=== PATIENT | male | born 1990 | race American Indian/Alaskan Native ===

== ENCOUNTER 2018-07-21 15:20 | Emergency (ER) | payer BC ==
--- NOTE | 2018-07-21 15:27 | Emergency Department Report ---
Blank Doc - Documentation Documentation: C/O blood in urine and not able to urinate that started today. Pelvic pressure. Pain /. Dribbling. This initial assessment diagnostic orders/clinical plan/treatment (s) is/Are subject change based on patient's health status, clinical progression and re- assessment by fellow clinical providers in the ED. Further treatment and work-up at subsequent clinical providers discretion. Patient/guardians urged not to elope from their condition may be serious if not clinically assessed and managed. Initial order include:
[2018-07-21] MEDS ORDERED: MORPHINE IV ONE (16:32)
[2018-07-21] MEDS ORDERED: TORADOL IV ONE (16:32)
--- NOTE | 2018-07-21 16:38 | Emergency Department Report ---
<VIOLETTE RM - Last Filed: 07/21/18 17:04> ED Male HPI - General Chief complaint: Urogenital-Male Stated complaint: BLOOD IN URINE Time Seen by Provider: 07/21/18 16:23 Source: patient Mode of arrival: Ambulatory Limitations: No Limitations - History of Present Illness Initial comments: Patient is a 27-year-old male who is presenting with urinary retention since last night. Patient says yesterday his urine was clear but today he is only able to get small amounts of clots of blood out from the meatus of the pen is. Patient states he has some suprapubic pain that is progressively worsening and is currently 8 out of 10 in severity. Patient states he is straining to use the bathroom and feels sensation needs to probably small clots of blood will come out. Patient denies current nausea vomiting diarrhea fevers or chills. Patient has mild nausea yesterday. Patient denies any flank pain this time. H and is stated to the nurse that he's had some urinary frequency and discomfort with urination for several weeks but had no guerita blood in the urine. - Related Data Previous Rx's Medication Instructions Recorded Last Taken Type Cyclobenzaprine HCl [Flexeril 5 MG 5 mg PO TID #30 tab 12/30/14 Unknown Rx TAB] Ibuprofen [Motrin 800 MG tab] 800 mg PO Q8HR #30 tablet 12/30/14 Unknown Rx traMADol [Ultram 50 MG tab] 50 mg PO Q6HR PRN #20 tablet 12/30/14 Unknown Rx Ciprofloxacin HCl [Cipro] 500 mg PO BID #14 tablet 07/21/18 Unknown Rx Allergies Allergy/AdvReac Type Severity Reaction Status Date / Time No Known Allergies Allergy Verified 07/21/18 15:24 ED Review of Systems Comment: All other systems reviewed and negative ED Past Medical Hx - Past Medical History Previous Medical History?: No - Surgical History Past Surgical History?: No - Social History Smoking Status: Current Every Day Smoker Substance Use Type: Alcohol - Medications Home Medications: Home Medications Medication Instructions Recorded Confirmed Last Taken Type Cyclobenzaprine HCl [Flexeril 5 MG 5 mg PO TID #30 tab 12/30/14 Unknown Rx TAB] Ibuprofen [Motrin 800 MG tab] 800 mg PO Q8HR #30 tablet 12/30/14 Unknown Rx traMADol [Ultram 50 MG tab] 50 mg PO Q6HR PRN #20 tablet 12/30/14 Unknown Rx Ciprofloxacin HCl [Cipro] 500 mg PO BID #14 tablet 07/21/18 Unknown Rx ED Physical Exam - General Limitations: No Limitations General appearance: alert, in no apparent distress - Head Head exam: Present: atraumatic, normocephalic - Eye Eye exam: Present: normal appearance - ENT ENT exam: Present: mucous membranes moist - Neck Neck exam: Present: normal inspection - Respiratory Respiratory exam: Present: normal lung sounds bilaterally. Absent: respiratory distress, wheezes, rales, rhonchi - Cardiovascular Cardiovascular Exam: Present: regular rate, normal rhythm. Absent: systolic murmur, diastolic murmur, rubs, gallop - GI/Abdominal GI/Abdominal exam: Present: soft, tenderness (suprapubic. There is also firmness in this area.), normal bowel sounds. Absent: distended, guarding, rebo und - Rectal Rectal exam: Present: deferred - Extremities Exam Extremities exam: Present: normal inspection - Back Exam Back exam: Present: normal inspection - Neurological Exam Neurological exam: Present: alert, oriented X3 - Psychiatric Psychiatric exam: Present: normal affect, normal mood - Skin Skin exam: Present: warm, dry, intact, normal color. Absent: rash ED Course - Reevaluation(s) Reevaluation #1: 07/21/18 16:38 Patient was able to express a small amount of urine. This was completely bloody and had several small clots. Reevaluation #2: 07/21/18 17:04 Kaplan was placed by nursing staff. Possibly 500 mL of guerita blood was immediately drained. Patient's bladder will be irrigated and the patient be reassessed. ED Disposition Clinical Impression: Hematuria Disposition: DC-01 TO HOME OR SELFCARE Condition: Stable Instructions: Acute Hematuria (ED) Prescriptions: Ciprofloxacin HCl [Cipro] 500 mg PO BID #14 tablet Referrals: MERCY CHARLES MD [Staff Physician] - 24 Hours (please be sure to follow up with Urology tomorrow!) <YARELIS KAM - Last Filed: 07/22/18 00:01> ED Review of Systems ROS: Stated complaint: BLOOD IN URINE Other details as noted in HPI ED Course Vital Signs 07/21/18 07/21/18 07/21/18 15:25 17:23 19:47 Temperature 98.5 F 98.5 F Pulse Rate 95 H 94 H Respiratory 18 16 16 Rate Blood Pressure 136/82 Blood Pressure 120/83 [Left] O2 Sat by Pulse 98 98 Oximetry 07/21/18 23:48 Temperature 98.5 F Pulse Rate 77 Respiratory 16 Rate Blood Pressure Blood Pressure 123/74 [Left] O2 Sat by Pulse 99 Oximetry ED Medical Decision Making - Lab Data Result diagrams: 07/21/18 16:37 07/21/18 16:37 - Medical Decision Making A 27-year-old male presents with guerita spontaneous hematuria. His ultrasound did show possible hydrocele but CT scan did not confirm any in the kidney stones or evidence of any [place]. Unsure of the stone had passed. A Kaplan catheter was placed due to the hematuria and what appeared to be urinary retention and. We attempted to irrigate the bladder. However, the the the drainage remained bloody. Case was discussed with urology home. Advised to follow-up with them in the morning. Laboratory data was relatively benign. Pain was is controlled and the discussed the findings and follow-up with the patient and family in detail. Critical care attestation.: If time is entered above; I have spent that time in minutes in the direct care of this critically ill patient, excluding procedure time. ED Disposition Is pt being admited?: No Does the pt Need Aspirin: No
[2018-07-21 17:07] LABS: BUN/Creatinine Ratio 10; Blood Urea Nitrogen 8 mg/dL (9-20); Calcium 9.9 mg/dL (8.4-10.2); Hemolysis Index 5
[2018-07-21 17:14] LABS: Basophils % (Auto) 0.4 % (0.0-1.8); Eosinophils % (Auto) 0.3 % (0.0-4.3); Hematocrit 41.9 % (35.5-45.6); Hemoglobin 14.2 gm/dl (11.8-15.2); Lymphocytes # (Auto) 1.3 K/mm3 (1.2-5.4); Lymphocytes % (Auto) 13.8 % (13.4-35.0); Mean Corpuscular HGB Conc 34 % (32-34); Mean Corpuscular Volume 89 fl (84-94); Monocytes # (Auto) 0.4 K/mm3 (0.0-0.8); Monocytes % (Auto) 4.4 % (0.0-7.3); Platelet Count 279 K/mm3 (140-440); Red Blood Count 4.73 M/mm3 (3.65-5.03); Red Cell Distribution Width 13.8 % (13.2-15.2)
--- NOTE | 2018-07-21 19:05 | Ultrasound Report ---
PROCEDURE: US RENAL BILAT TECHNIQUE: [place] scale and color flow imaging of the kidneys and urinary bladder was performed. HISTORY: hematuria COMPARISONS: None FINDINGS: The right kidney measures 10.9 cm x 4.3 cm x 4.4 cm with a cortical thickness measurements of 1.6 cm. The left kidney measures 11 cm x 5.2 cm x 4.3 cm with a cortical thickness measurement of 1.5 cm. There is mild dilatation of the left renal pelvis. There is no demonstration of renal calculi or renal mass of either kidney. The urinary bladder is decompressed around a balloon catheter which limits evaluation. IMPRESSION: 1. Findings suggestive of mild left hydronephrosis. CT abdomen and pelvis may be helpful for further evaluation for the presence or absence of an obstruc tive process. 2. Urinary bladder is decompressed around a balloon catheter. This document is electronically signed by Sneha Murillo MD., July 21 2018 07:03:09 PM ET
[2018-07-21 20:13] LABS: Bilirubin,Urine NEG (Negative); Blood,Urine LG (Negative); Color,Urine Red (Yellow); Urobilinogen,Urine < 2.0 mg/dL (<2.0)
[2018-07-21 20:23] LABS: Mucus,Urine 3+ /HPF
[2018-07-21 20:24] LABS: RBC,Urine > 182.0 /HPF (0.0-6.0)
[2018-07-21] MEDS ORDERED: NACL 0.9% 500 ML 500 ML ONE (20:55)
[2018-07-21] MEDS ORDERED: NACL 0.9% 500 ML 500 ML IRRIGATION ONE (21:00)
--- NOTE | 2018-07-21 22:45 | Cat Scan Report ---
PROCEDURE: CT ABDOMEN PELVIS W CON TECHNIQUE: PROCEDURE: CT ABDOMEN PELVIS W CON TECHNIQUE: Computerized axial tomography of the abdomen and pelvis was performed after the IV inject ion of iodinated nonionic contrast. CT DOSE LENGTH PRODUCT: mGycm HISTORY: flank pain and hematuria COMPARISONS: None . FINDINGS: Liver, spleen, pancreas and adrenal glands are within normal limits. Bilateral kidneys demonstrate no rmal enhancement without hydronephrosis. A small well-defined simple cyst is noted in the lower pole left kidney measuring 0.8 cm. Aorta is of normal caliber. There is no free fluid or free air. Gallbla dder is unremarkable. Small bowel loops are within normal limits. Urinary bladder is empty due to Fol ey bulb in situ. Appendix is normal. Vertebral height is normal. IMPRESSION: No acute intra-abdominal or pelvic pathology . This document is electronically signed by Alfonso Whitney MD., July 21 2018 10:43:28 PM ET
[2018-07-21 23:49] VITALS: BP 123/74
[2018-07-21] MEDS ORDERED: NACL 0.9% 1000 ML 1,000 ML IV STA (23:51)
[2018-07-21] MEDS ORDERED: ROCEPHIN/NS 1 GM/50 ML 1 GM/50 ML BAG IV STA (23:51)
[2018-07-21] MEDS ORDERED: NACL 0.9% 1000 ML 1,000 ML ONE (23:54)
[2018-07-21] MEDS ORDERED: ROCEPHIN/NS 1 GM/50 ML 1 GM/50 ML BAG IV ONE (23:54)
[2018-07-22] MEDS ORDERED: PERCOCET 5/325 PO ONE (01:03)
[2018-07-22] MEDS ORDERED: PERCOCET 5/325 ONE (01:07)
== END 2018-07-22 01:33 | disposition home or self-care (01) ==
LOC: ED 15:20
DX: R31.9 Hematuria, unspecified (principal); R30.0 Dysuria; R35.0 Frequency of micturition; R10.2 Pelvic and perineal pain; F17.200 Nicotine dependence, unspecified, uncomplicated
CPT/HCPCS: 36415; 51702; 74177; 76770; 80048; 81001; 85025; 96365; 96375; 99284; J0696; J1885; J2270; J7030; J7040; Q9967

== ENCOUNTER 2021-08-17 19:16 | Emergency (ER) | payer SELFPAY ==
[2021-08-17 19:23] VITALS: BP 119/87
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
[2021-08-17 20:16] LABS: INR 0.92 (0.87-1.13); Partial Thromboplastin Time 22.4 Sec. (24.2-36.6)
[2021-08-17] MEDS: TETANUS,DIPH,PERTUSS(ACELL) VACCINE 0.5 ML SYRINGE IM ONE (20:17)
--- NOTE | 2021-08-17 20:17 | XRay Report ---
Right ankle 3 views INDICATION: Pain IMPRESSION: Alignment appears normal. No acute fractures seen. Mild diffuse soft tissue swelling. Signer Name: Hernandez Talamantes MD Signed: 08/17/2021 8:12 PM Workstation Name: [id number]
[2021-08-17] MEDS: ONDANSETRON 4 MG/2 ML INJ IV ONE (20:19)
[2021-08-17] MEDS: MORPHINE 4 MG/1 ML INJ IV ONE ×3 (20:19→22:28)
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
[2021-08-17 20:28] LABS: Alanine Aminotransferase 14 units/L (7-56); Albumin 4.8 g/dL (3.9-5); BUN/Creatinine Ratio 11; Blood Urea Nitrogen 10 mg/dL (9-20); Hemolysis Index 14
[2021-08-17 20:47] LABS: Basophils % (Auto) 0.3 % (0.0-1.8); Eosinophils # (Auto) 0.1 K/mm3 (0.0-0.4); Eosinophils % (Auto) 0.8 % (0.0-4.3); Hematocrit 43.2 % (35.5-45.6); Hemoglobin 13.9 gm/dl (11.8-15.2); Lymphocytes # (Auto) 3.5 K/mm3 (1.2-5.4); Mean Corpuscular HGB Conc 32 % (32-34); Mean Corpuscular Volume 90 fl (84-94); Monocytes # (Auto) 0.8 K/mm3 (0.0-0.8); Monocytes % (Auto) 7.9 % (0.0-7.3); Platelet Count 274 K/mm3 (140-440); Red Blood Count 4.79 M/mm3 (3.65-5.03); Red Cell Distribution Width 13.7 % (13.2-15.2)
[2021-08-17] MEDS ORDERED: SODIUM CHLORIDE IRRI 500 ML 500 ML IR ONE (21:16)
[2021-08-17] MEDS: POVIDONE-IODINE OINTMENT 28.35 GM TP STA (21:19)
[2021-08-17] MEDS: LIDOCAINE (1%) 10 MG/1 ML VIAL 20 ML MDV INFILTRATI ONE (21:19)
[2021-08-17] MEDS: SODIUM CHLORIDE 0.9% IRR 500 ML BOTTLE IR ONE (21:20)
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
[2021-08-17] MEDS ORDERED: IBUPROFEN 800 MG TAB PO ONE (23:04)
[2021-08-17] MEDS ORDERED: HYDROcodone/ACETAMINOPHEN 5-325 MG TAB PO ONE (23:04)
== END 2021-08-18 00:27 | disposition home or self-care (01) ==
LOC: ED 19:16
DX: S93.491A Sprain of other ligament of right ankle, initial encounter (principal); S83.8X1A Sprain of other specified parts of right knee, initial encounter; S81.001A Unspecified open wound, right knee, initial encounter; R79.1 Abnormal coagulation profile; F17.200 Nicotine dependence, unspecified, uncomplicated; Z72.89 Other problems related to lifestyle; V87.7XXA Person injured in collision between other specified motor vehicles (traffic), initial encounter; Y93.89 Activity, other specified; Y92.488 Other paved roadways as the place of occurrence of the external cause; Y99.8 Other external cause status
CPT/HCPCS: 29505; 36415; 73562; 73610; 73700; 80053; 85025; 85610; 85730; 90471; 90715; 96365; 96375; 96376; 99285; J0690; J2270; J2405; J3490; 99284